=== PATIENT | female | born 1990 | race Caucasian/White ===

== ENCOUNTER → 2017-02-25 | Outpatient (CLI) | payer OTHER ==
[~2017-02-25] MED LIST: GADOBENATE 529MG/1ML 15ML VIAL IVP ONE
--- NOTE | 2017-02-25 12:22 | RADIOLOGY IMAGING REPORT ---
FACILITY: [facility] PATIENT NAME: Madeline Arguello : 1990 MR: [id number] V: [id number] EXAM DATE: ORDERING PHYSICIAN: MORENA MEMBRENO TECHNOLOGIST: Location: [facility] Patient: Madeline Arguello : 1990 Visit/Account:[id number] Date of Sevice: 02/25/2017 Examination: MR brain without and with contrast History: Left-sided facial pain and numbness Comparison: None Technique: Multiplane pre and postcontrast imaging was performed through the brain. 15 mL MultiHance injected. Findings: Diffusion: None Ventricles: Normal Midline shift: None Extraxial fluid: None Midline craniocervical structures: Normal Parenchyma: Normal Enhancement: No pathologic enhancement Vascular flow voids: Normal Orbits and paranasal sinuses: Normal orbits. Mild right maxillary sinus mucosal thickening. Left ma xillary mucous retention cysts measuring up to 1.6 cm. Rightward nasal septum deviation. Impression: 1. Left maxillary sinus mucous retention cysts measuring up to 1.6 cm. 2. Mild right maxillary sinus mucosal thickening. 3. Otherwise unremarkable and normal brain MR without and with contrast. Report Dictated By: Daryl Luna MD at 02/25/2017 12:12 PM Report E-Signed By: Daryl Luna MD at 02/25/2017 12:19 PM WSN:[id number]
== END ==
LOC: MRI 00:46
PROVIDERS: ATTEND Physician Assistant
DX: J34.1 Cyst and mucocele of nose and nasal sinus (principal); J34.89 Other specified disorders of nose and nasal sinuses
CPT/HCPCS: 70553; A9577

== ENCOUNTER → 2017-03-06 | Outpatient (CLI) | payer OTHER | LOC: LAB 15:29 | PROVIDERS: ATTEND Physician Assistant | DX: G50.1 Atypical facial pain (principal) | CPT/HCPCS: 36415; 82040; 82247; 82310; 82374; 82435; 82565; 82947; 84075; 84132; 84155; 84295; 84450; 84460; 84520 ==

== ENCOUNTER → 2017-03-29 | Outpatient (CLI) | payer OTHER ==
[~2017-03-29] MED LIST changes: +CARB300C2 PO; -GADOBENATE 529MG/1ML 15ML VIAL IVP ONE; +LEVA15HF IH
--- NOTE | 2017-03-29 16:42 | RADIOLOGY IMAGING REPORT ---
FACILITY: [facility] PATIENT NAME: LORI MODI : [id number] MR: [id number] V: [id number] EXAM DATE: ORDERING PHYSICIAN: RICH GARZA TECHNOLOGIST: Tori Hanna PROCEDURE:US LEFT BREAST COMPARISON:None. INDICATIONS:LT BREAST LUMP/LEFT BREAST PALPABLE LUMP AT 11 O'CLOCK FINDINGS: AREA SCANNED: Left breast upper inner quadrant from 10-12 o'clock. The palpable lump corresponds to a ridge of echogenic fibroglandular tissue. Within this ridge is an oval hypoechoic mass producing posterior acoustic enhancement, measuring 11 x 5 x 13mm at 11 o'clock, 3cm from the nipple. 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 DIAGNOSTIC CATEGORY 3--PROBABLY BENIGN FINDING. RECOMMENDATIONS: SERIAL SIX MONTH LEFT BREAST ULTRASOUND REASSESSMENT OF THIS FINDING UNTIL 2 YRS TO PROVE BENIGNITY. I discussed the results & recommendation with the patient following the study. IMPRESSION: BIRADS 3: Probably benign finding Dictated by: Comfort Malave M.D. on 03/29/2017 at 13:57 Transcribed by: SLAVA on 03/29/2017 at 15:14 Approved by: Comfort Malave M.D. on 03/29/2017 at 16:41 [facility]
== END ==
LOC: US 02:43
PROVIDERS: ATTEND Obstetrics & Gynecology
DX: N63.22 Unspecified lump in the left breast, upper inner quadrant (principal)

== ENCOUNTER → 2017-04-16 | Outpatient (CLI) | payer OTHER ==
[~2017-04-16] MED LIST changes: +AMIT-104 PO
[2017-04-16 09:40] LABS: INR 1.07
--- NOTE | 2017-04-17 10:45 | RADIOLOGY IMAGING REPORT ---
FACILITY: [facility] PATIENT NAME: LORI MODI : [id number] MR: [id number] V: [id number] EXAM DATE: ORDERING PHYSICIAN: RICH GARZA TECHNOLOGIST: Carmen Lopez PROCEDURE: BIOPSY LEFT BREAST COMPARISON: None. INDICATIONS: LT BREAST MASS 11 o'clock FINDINGS: Informed consent was obtained. The patient's Left breast was prepped & draped in the usual sterile fashion. Local anesthesia was accomplished with 1% Lidocaine. Under sonographic guidance three 12 gauge core biopsies were obtained through the hypoechoic mass in the 11 o'clock position Left breast. Samples were placed in formalin, shown to the patient & sent to the Laboratory for evaluation. A biopsy clip was placed in the biopsy site. The procedure was accomplished without apparent complication. The post biopsy Left mammogram demonstrated the biopsy clip to be in the approximate 11 o'clock position of the Left breast. IMPRESSION: 1. Successful sonographically guided Left breast biopsy. Pathology results are pending. Dictated by: Concepcion Sosa M.D. on 04/16/2017 at 16:17 Transcribed by: SLAVA on 04/17/2017 at 8:56 Approved by: Concepcion Sosa M.D. on 04/17/2017 at 10:44 [facility]
--- NOTE | 2017-04-17 10:45 | RADIOLOGY IMAGING REPORT ---
FACILITY: PATIENT NAME: LORI MODI : [id number] MR: [id number] V: [id number] EXAM DATE: ORDERING PHYSICIAN: RICH GARZA TECHNOLOGIST: Carmen Lopez PROCEDURE: BIOPSY LEFT BREAST COMPARISON: None. INDICATIONS: LT BREAST MASS 11 o'clock FINDINGS: Informed consent was obtained. The patient's Left breast was prepped & draped in the usual sterile fashion. Local anesthesia was accomplished with 1% Lidocaine. Under sonographic guidance three 12 gauge core biopsies were obtained through the hypoechoic mass in the 11 o'clock position Left breast. Samples were placed in formalin, shown to the patient & sent to the Laboratory for evaluation. A biopsy clip was placed in the biopsy site. The procedure was accomplished without apparent complication. The post biopsy Left mammogram demonstrated the biopsy clip to be in the approximate 11 o'clock position of the Left breast. IMPRESSION: 1. Successful sonographically guided Left breast biopsy. Pathology results are pending. Dictated by: Concepcion Sosa M.D. on 04/16/2017 at 16:17 Transcribed by: SLAVA on 04/17/2017 at 8:56 Approved by: Concepcion Sosa M.D. on 04/17/2017 at 10:44 [facility]
== END ==
LOC: MAMO 01:16
PROVIDERS: ATTEND Obstetrics & Gynecology
DX: D24.2 Benign neoplasm of left breast (principal)
CPT/HCPCS: 19083; 36415; 77065; 85610; 88305; 88344